=== PATIENT | male | born 1940 | race African-American/Black ===

== ENCOUNTER 2017-06-13 10:44 | Inpatient (IN) | payer MEDICAID, MEDICARE ==
[2017-06-13] VITALS (7 sets, daily range): BP systolic 119–216; BP diastolic 68–101
[~2017-06-13] VITALS: Ht 185.4 cm; Wt 83.5 kg
[2017-06-13] MEDS ORDERED: ASPIRIN 81MG TABLET PO ONE (11:45)
[2017-06-13 12:10] LABS: BASOPHILS % 0.7 % (0.0-2.0); EOSINOPHILS % 1.6 % (0.0-5.0); HEMATOCRIT. 43.1 % (42.0-52.0); HEMOGLOBIN. 14.6 g/dL (14.0-18.0); LYMPHOCYTES % 23.2 % (20.0-50.0); MEAN CORPUSCULAR HEMOGLOBIN 31.5 pg (28.0-32.0); MEAN CORPUSCULAR VOLUME 93.1 fL (80.0-94.0); MONOCYTES % 8.1 % (2.0-8.0); NEUTROPHILS % 66.4 % (40.0-76.0); PLATELET 207 x1000/uL (130-400); RED BLOOD CELL COUNT 4.62 mill/uL (4.7-6.1); RED CELL DISTRIBUTION WIDTH 14.4 % (11.6-14.6)
[2017-06-13 12:25] LABS: CARBON DIOXIDE 27 mEq/L (21-32); CHLORIDE 100 mEq/L (98-107); D-DIMER 0.77 mg/L FEU (<0.50); PARTIAL THROMBOPLASTIN TIME 26.4 sec (23.4-31.0); PROTHROMBIN TIME 10.7 sec (9.4-11.6); TROPONIN I 0.03 ng/mL (0.00-0.04)
[2017-06-13 12:44] LABS: COLOR URINE YELLOW (YELLOW)
[2017-06-13 12:45] LABS: CLARITY URINE CLEAR (CLEAR); GLUCOSE URINE 3+ (NEGATIVE); KETONES URINE NEGATIVE (NEGATIVE); LEUKOCYTE ESTERASE URINE NEGATIVE (NEGATIVE); NITRITE URINE NEGATIVE (NEGATIVE); OCCULT BLOOD URINE NEGATIVE (NEGATIVE); PROTEIN URINE 2+ (NEGATIVE); SPECIFIC GRAVITY URINE 1.027 (1.005-1.030); UROBILINOGEN URINE 0.2 E.U./dL (0.2-1.0)
[2017-06-13] MEDS ORDERED: CLONIDINE 0.1MG TABLET PO PRN (15:15)
[2017-06-13] MEDS ORDERED: HYDRALAZINE 20MG/ML VIAL IV PRN (15:15)
[2017-06-13] MEDS: AMLODIPINE 5MG TABLET PO SCH ×2 (16:57→21:06)
[2017-06-13] MEDS: LOSARTAN POTASSIUM 25 MG TABLET PO SCH ×2 (17:06→21:06)
[2017-06-13] MEDS: NITROGLYCERIN OINT 1GM/INCH UDPKT TD SCH (17:11)
[2017-06-13] MEDS ORDERED: IOHEXOL-350 100 ML BOTTLE ONE (17:16)
[2017-06-13] MEDS ORDERED: HYDROCODONE/ACETAMINOPHEN 5/325MG TABLET PO PRN (17:45)
[2017-06-13] MEDS ORDERED: DEXTROSE 50% WATER 50ML SYRINGE IV PRN (17:45)
[2017-06-13] MEDS ORDERED: ONDANSETRON HCL 4MG/2ML VIAL IV PRN (17:45)
[2017-06-13] MEDS ORDERED: IPRATROPIUM/ALBUTEROL 0.5-3(2.5)MG/3ML NEB INH PRN (17:45)
[2017-06-13] MEDS: BLOOD SUGAR DIAGNOSTIC STRIP TEST SCH (20:53)
[2017-06-13] MEDS: HYDROCODONE/ACETAMINOPHEN 10/325MG TABLET PO PRN (21:06)
[2017-06-13] MEDS: ENOXAPARIN 40MG/0.4ML SYR SUBCUT SCH (21:09)
[2017-06-13] MEDS: INSULIN LISPRO 100 UNITS/ML SUBCUT SCH (21:11)
[2017-06-13] MEDS ORDERED: IBUPROFEN 600MG TABLET PO PRN (23:15)
[2017-06-14 00:02] VITALS: BP 116/58
[2017-06-14] MEDS: NITROGLYCERIN OINT 1GM/INCH UDPKT TD SCH ×2 (00:22→05:10)
[2017-06-14] MEDS: ZOLPIDEM TARTRATE 5MG TABLET PO PRN ×2 (00:22→21:10)
[2017-06-14] MEDS ORDERED: BIMA2.5D4 EACHEYE (02:31)
[2017-06-14] MEDS ORDERED: HYDR-3992 PO (02:32)
[2017-06-14] MEDS ORDERED: ASPI-1159 PO (02:33)
[2017-06-14] MEDS ORDERED: ALBU6.7H INH (02:33)
[2017-06-14] MEDS ORDERED: LIP40 PO (02:34)
[2017-06-14] MEDS ORDERED: insulin (02:34)
[2017-06-14] MEDS ORDERED: HYDR25TA PO (02:34)
[2017-06-14] MEDS ORDERED: NITR0.4T49 SL (02:35)
[2017-06-14] MEDS ORDERED: LISI10TA5 PO (02:35)
[2017-06-14] MEDS ORDERED: METO50TA5 PO (02:36)
[2017-06-14] MEDS ORDERED: PROT40 PO (02:36)
[2017-06-14] MEDS ORDERED: TAMS-11 PO (02:37)
[2017-06-14] MEDS ORDERED: SITA100T11 PO (02:37)
[2017-06-14] MEDS ORDERED: INSU100I28 SQ (02:38)
[2017-06-14] MEDS ORDERED: ALPR2TAB2 PO (02:39)
[2017-06-14] MEDS ORDERED: HYDR-519 PO (02:40)
[2017-06-14 04:59] VITALS: BP 99/54
[2017-06-14] MEDS: BLOOD SUGAR DIAGNOSTIC STRIP TEST SCH ×4 (06:17→19:43)
[2017-06-14] MEDS: INSULIN LISPRO 100 UNITS/ML SUBCUT SCH ×4 (06:23→21:30)
[2017-06-14 06:50] LABS: *AMPHETAMINES SCREEN URINE NEGATIVE (NEGATIVE); *BARBITURATES SCREEN URINE NEGATIVE (NEGATIVE); *BENZODIAZEPINES SCREEN URINE NEGATIVE (NEGATIVE); *COCAINE SCREEN URINE NEGATIVE (NEGATIVE); CANNABINOID URINE SCREEN NEGATIVE (NEGATIVE); OPIATES URINE SCREEN NEGATIVE (NEGATIVE); PHENCYCLIDINE URINE SCREEN NEGATIVE (NEGATIVE)
[2017-06-14 06:58] LABS: METHADONE URINE SCREEN NEGATIVE (NEGATIVE)
[2017-06-14 07:34] LABS: BASOPHILS % 0.5 % (0.0-2.0); EOSINOPHILS % 0.8 % (0.0-5.0); HEMATOCRIT. 42.1 % (42.0-52.0); HEMOGLOBIN. 14.2 g/dL (14.0-18.0); LYMPHOCYTES % 20.1 % (20.0-50.0); MEAN CORPUSCULAR HEMOGLOBIN 31.4 pg (28.0-32.0); MEAN CORPUSCULAR VOLUME 93.3 fL (80.0-94.0); MEAN PLATELET VOLUME 8.4 fl (7.4-10.4); MONOCYTES % 6.3 % (2.0-8.0); NEUTROPHILS % 72.3 % (40.0-76.0); PLATELET 205 x1000/uL (130-400); RED BLOOD CELL COUNT 4.51 mill/uL (4.7-6.1); RED CELL DISTRIBUTION WIDTH 14.6 % (11.6-14.6)
[2017-06-14 08:00] VITALS: BP 123/60
[2017-06-14 08:07] LABS: CHLORIDE 101 mEq/L (98-107)
[2017-06-14 08:24] LABS: CARBON DIOXIDE 29 mEq/L (21-32); CREATINE KINASE 133 IU/L (39-308); CREATINE KINASE MB FRACTION 2.8 ng/mL (0.5-3.6); HDL CHOLESTEROL 41 mg/dL (40-59); LDL CHOLESTEROL 114 mg/dL (5-100); TROPONIN I 0.02 ng/mL (0.00-0.04)
[2017-06-14] MEDS: AMLODIPINE 5MG TABLET PO SCH (08:26)
[2017-06-14] MEDS: ASPIRIN 81MG TABLET PO SCH (08:26)
[2017-06-14] MEDS: LOSARTAN POTASSIUM 25 MG TABLET PO SCH ×2 (08:26→20:58)
[2017-06-14] MEDS ORDERED: DOBUTAMINE 250MG PREMIX 250 ML IV ONE ×2 (11:15→12:43)
[2017-06-14 12:00] VITALS: BP 117/63
[2017-06-14] MEDS ORDERED: ESMOLOL HCL 10MG/ML 10ML VIAL IV ONE (13:21)
[2017-06-14 16:00] VITALS: BP 123/71
[2017-06-14] MEDS: ENOXAPARIN 40MG/0.4ML SYR SUBCUT SCH (17:30)
[2017-06-14] MEDS: HYDROCODONE/ACETAMINOPHEN 10/325MG TABLET PO PRN ×2 (17:31→21:27)
[2017-06-14 20:00] VITALS: BP 114/72
[2017-06-14] MEDS: AMLODIPINE 2.5MG TABLET PO SCH (20:58)
[2017-06-15] VITALS: BP 144/67
[2017-06-15 03:23] VITALS: BP 116/74
[2017-06-15] MEDS: HYDROCODONE/ACETAMINOPHEN 10/325MG TABLET PO PRN ×2 (03:23→10:04)
[2017-06-15] MEDS: BLOOD SUGAR DIAGNOSTIC STRIP TEST SCH ×3 (05:49→12:17)
[2017-06-15] MEDS: INSULIN LISPRO 100 UNITS/ML SUBCUT SCH ×2 (05:56→12:38)
[2017-06-15 07:13] LABS: BASOPHILS % 0.6 % (0.0-2.0); EOSINOPHILS % 1.9 % (0.0-5.0); HEMOGLOBIN. 13.3 g/dL (14.0-18.0); LYMPHOCYTES % 38.5 % (20.0-50.0); MEAN CORPUSCULAR HEMOGLOBIN 31.1 pg (28.0-32.0); MEAN CORPUSCULAR VOLUME 93.4 fL (80.0-94.0); MEAN PLATELET VOLUME 8.5 fl (7.4-10.4); MONOCYTES % 9.4 % (2.0-8.0); NEUTROPHILS % 49.6 % (40.0-76.0); PLATELET 195 x1000/uL (130-400); RED BLOOD CELL COUNT 4.28 mill/uL (4.7-6.1); RED CELL DISTRIBUTION WIDTH 14.4 % (11.6-14.6)
[2017-06-15 07:27] VITALS: BP 105/64
[2017-06-15] MEDS: AMLODIPINE 2.5MG TABLET PO SCH (08:08)
[2017-06-15] MEDS: ASPIRIN 81MG TABLET PO SCH (08:20)
[2017-06-15] MEDS: LOSARTAN POTASSIUM 25 MG TABLET PO SCH (08:20)
[2017-06-15 08:39] LABS: CARBON DIOXIDE 26 mEq/L (21-32); CHLORIDE 102 mEq/L (98-107)
[2017-06-15 08:45] LABS: TROPONIN I 0.05 ng/mL (0.00-0.04)
[2017-06-15] MEDS ORDERED: AMLO2.5T45 PO (09:51)
[2017-06-15] MEDS ORDERED: LOSA25TA3 PO (09:51)
[2017-06-15] MEDS ORDERED: HYDR-519 PO (09:51)
[2017-06-15] MEDS ORDERED: ASPI-1160 PO (09:51)
[2017-06-15 11:44] VITALS: BP 126/76
[2017-06-15 15:03] VITALS: BP 126/76
[2017-06-15 15:54] VITALS: BP 140/61
== END 2017-06-15 15:50 | disposition home or self-care (01) | DRG 291 ==
LOC: ER 12:06 → 8WST 13:19 → EDBEDREQ 13:20 → ENRESERV 13:44
PROVIDERS: ADMIT Internal Medicine; ATTEND Internal Medicine
DX: I13.0 Hypertensive heart and chronic kidney disease with heart failure and stage 1 through stage 4 chronic kidney disease, or unspecified chronic kidney disease (principal); I50.43 Acute on chronic combined systolic (congestive) and diastolic (congestive) heart failure; N17.9 Acute kidney failure, unspecified; E11.22 Type 2 diabetes mellitus with diabetic chronic kidney disease; E11.65 Type 2 diabetes mellitus with hyperglycemia; M54.2 Cervicalgia; I25.10 Atherosclerotic heart disease of native coronary artery without angina pectoris; G89.29 Other chronic pain; M54.9 Dorsalgia, unspecified; J44.9 Chronic obstructive pulmonary disease, unspecified; E78.00 Pure hypercholesterolemia, unspecified; N18.9 Chronic kidney disease, unspecified; R79.1 Abnormal coagulation profile; Z95.1 Presence of aortocoronary bypass graft; Z79.1 Long term (current) use of non-steroidal anti-inflammatories (NSAID); I25.2 Old myocardial infarction; Z79.4 Long term (current) use of insulin; Z79.899 Other long term (current) drug therapy; Z79.82 Long term (current) use of aspirin
CPT/HCPCS: 36415; 71010; 71275; 80053; 80061; 80305; 81001; 82550; 82553; 82962; 83036; 83690; 83735; 83880; 84443; 84484; 85025; 85379; 85610; 85730; 87040; 87086; 93005; 93306; 93970; 97162; 97166; 97535; 99285; J0360; J1250; J1650; J1815; J3490; Q9967

== ENCOUNTER 2020-02-15 16:21 | Inpatient (IN) | payer MEDICARE, MEDICAID ==
[~2020-02-15] VITALS: Ht 185.4 cm; Wt 88.5 kg
[~2020-02-15 16:21] MED LIST: ALBU6.7H11 INH; ALPR2TAB2 PO; AMLO2.5T45 PO; ASPI-1160 PO; ASPI-1497 PO; BIMA2.5D4 EACHEYE; HYDR-3992 PO; HYDR-519 PO; INSU100I28 SQ; LIP40 PO; LOSA25TA3 PO; NITR0.4T49 SL; SITA100T11 PO; TAMS-11 PO; insulin
[2020-02-15] MEDS ORDERED: ASPIRIN 81MG TABLET PO ONE (18:00)
[2020-02-15] MEDS ORDERED: NITROGLYCERIN 0.4MG TABLET SL SL PRN (18:00)
[2020-02-15 18:25] LABS: BASOPHILS % 0.4 % (0.0-2.0); EOSINOPHILS % 1.6 % (0.0-5.0); HEMATOCRIT. 41.3 % (42.0-52.0); HEMOGLOBIN. 13.8 g/dL (14.0-18.0); MEAN CORPUSCULAR HEMOGLOBIN 31.5 pg (28.0-32.0); MEAN CORPUSCULAR VOLUME 94.2 fL (80.0-94.0); MEAN PLATELET VOLUME 7.5 fl (7.4-10.4); MONOCYTES % 11.8 % (2.0-8.0); NEUTROPHILS % 59.2 % (40.0-76.0); PLATELET 253 x1000/uL (130-400); RED BLOOD CELL COUNT 4.38 mill/uL (4.7-6.1); RED CELL DISTRIBUTION WIDTH 14.4 % (11.6-14.6)
[2020-02-15 18:27] LABS: CHLORIDE 112 mEq/L (98-107)
[2020-02-15 19:25] LABS: CLARITY URINE CLEAR (CLEAR); COLOR URINE YELLOW (YELLOW); KETONES URINE NEGATIVE (NEGATIVE); LEUKOCYTE ESTERASE URINE NEGATIVE (NEGATIVE); NITRITE URINE NEGATIVE (NEGATIVE); OCCULT BLOOD URINE NEGATIVE (NEGATIVE); PROTEIN URINE 2+ (NEGATIVE); UROBILINOGEN URINE 0.2 E.U./dL (0.2-1.0)
[2020-02-15] MEDS ORDERED: ONDANSETRON HCL 4MG/2ML INJ IV PRN (22:00)
[2020-02-15] MEDS ORDERED: ACETAMINOPHEN 325MG TABLET PO PRN (22:00)
[2020-02-15] MEDS ORDERED: METOPROLOL TARTRATE 50MG TABLET PO NR (22:00)
[2020-02-15] MEDS ORDERED: DEXTROSE 50% WATER 50ML SYRINGE IV PRN (22:00)
[2020-02-15] MEDS: SODIUM CHLORIDE 0.9% 1,000 ML IV SCH (22:49)
[2020-02-15 22:58] VITALS: BP 192/83
[2020-02-16] VITALS: BP 115/79
[2020-02-16] MEDS ORDERED: ALLO100T PO (00:26)
[2020-02-16] MEDS ORDERED: NALO4SPR NS (00:26)
[2020-02-16] MEDS ORDERED: DULO20CA18 PO (00:26)
[2020-02-16] MEDS ORDERED: CYCL5TAB PO (00:26)
[2020-02-16] MEDS ORDERED: LEVVL SQ (00:26)
[2020-02-16] MEDS ORDERED: SULF-288 PO (00:26)
[2020-02-16] MEDS ORDERED: INSU100I33 SQ (00:26)
[2020-02-16] MEDS ORDERED: MONT10TA26 PO (00:26)
[2020-02-16] MEDS ORDERED: FLUT1DIS6 IH (00:29)
[2020-02-16] MEDS ORDERED: QUET100T33 PO (00:29)
[2020-02-16] MEDS ORDERED: PRED5DRO22 LEFTEYE (00:29)
[2020-02-16] MEDS ORDERED: OMEP20TA2 PO (00:29)
[2020-02-16] MEDS ORDERED: KETO5DRO80 RIGHTEYE (00:29)
[2020-02-16 04:00] VITALS: BP 136/69
[2020-02-16] MEDS: INSULIN LISPRO 100 UNITS/ML SUBCUT SCH ×4 (06:25→21:51)
[2020-02-16] MEDS: BLOOD SUGAR DIAGNOSTIC STRIP TEST SCH ×4 (06:25→21:50)
[2020-02-16] MEDS ORDERED: INSULIN LISPRO 100 UNITS/ML SUBCUT SCH (07:15)
[2020-02-16 08:00] VITALS: BP 182/80
[2020-02-16] MEDS: ASPIRIN 81MG TABLET PO SCH (08:38)
[2020-02-16] MEDS: METOPROLOL TARTRATE 50MG TABLET PO SCH ×2 (08:38→21:00)
[2020-02-16] MEDS: AMLODIPINE 10MG TABLET PO SCH (09:46)
[2020-02-16 11:09] LABS: BASOPHILS % 0.5 % (0.0-2.0); EOSINOPHILS % 2.4 % (0.0-5.0); HEMATOCRIT. 37.9 % (42.0-52.0); HEMOGLOBIN. 12.6 g/dL (14.0-18.0); LYMPHOCYTES % 32.9 % (20.0-50.0); MEAN CORPUSCULAR HEMOGLOBIN 31.5 pg (28.0-32.0); MEAN CORPUSCULAR VOLUME 94.9 fL (80.0-94.0); MEAN PLATELET VOLUME 7.6 fl (7.4-10.4); MONOCYTES % 9.3 % (2.0-8.0); NEUTROPHILS % 54.9 % (40.0-76.0); PLATELET 213 x1000/uL (130-400); RED BLOOD CELL COUNT 3.99 mill/uL (4.7-6.1); RED CELL DISTRIBUTION WIDTH 14.6 % (11.6-14.6)
[2020-02-16] MEDS: ENOXAPARIN 30MG/0.3ML SYR SUBCUT SCH (12:40)
[2020-02-16 14:58] VITALS: BP 121/61
[2020-02-16] MEDS: CLONIDINE 0.2MG TABLET PO SCH ×2 (15:05→21:49)
[2020-02-16 16:00] VITALS: BP 134/70
[2020-02-16 20:00] VITALS: BP 135/62
[2020-02-16] MEDS: ATORVASTATIN CALCIUM 20MG TABLET PO SCH (21:49)
[2020-02-16] MEDS: SODIUM CHLORIDE 0.9% 1,000 ML IV SCH (22:03)
[2020-02-16] MEDS: PREDNISOLONE ACETATE 1% OPHTH DROPS 5ML BOTHEYE SCH (22:33)
[2020-02-16] MEDS: KETOROLAC TROMETHAMINE 0.5% OPHTH 3ML BOTHEYE SCH (22:33)
[2020-02-17] VITALS: BP 116/47
[2020-02-17 04:00] VITALS: BP 118/53
[2020-02-17] MEDS: INSULIN LISPRO 100 UNITS/ML SUBCUT SCH ×4 (06:16→20:59)
[2020-02-17] MEDS: BLOOD SUGAR DIAGNOSTIC STRIP TEST SCH ×4 (06:16→20:52)
[2020-02-17] MEDS: CLONIDINE 0.2MG TABLET PO SCH (06:33)
[2020-02-17 08:00] VITALS: BP 150/63
[2020-02-17] MEDS: ASPIRIN 81MG TABLET PO SCH (08:35)
[2020-02-17] MEDS: KETOROLAC TROMETHAMINE 0.5% OPHTH 3ML BOTHEYE SCH ×4 (08:36→20:52)
[2020-02-17] MEDS: ENOXAPARIN 30MG/0.3ML SYR SUBCUT SCH (08:36)
[2020-02-17] MEDS: AMLODIPINE 10MG TABLET PO SCH (08:36)
[2020-02-17] MEDS: PREDNISOLONE ACETATE 1% OPHTH DROPS 5ML BOTHEYE SCH ×4 (08:41→20:52)
[2020-02-17] MEDS: METOPROLOL TARTRATE 50MG TABLET PO SCH (08:42)
[2020-02-17 12:00] VITALS: BP 144/53
[2020-02-17] MEDS: SODIUM CHLORIDE 0.9% 1,000 ML IV SCH (13:45)
[2020-02-17 16:00] VITALS: BP 139/60
[2020-02-17] MEDS: HYDRALAZINE HCL 100MG TABLET PO SCH ×2 (16:22→20:52)
[2020-02-17 20:41] VITALS: BP 123/57
[2020-02-17] MEDS: ATORVASTATIN CALCIUM 20MG TABLET PO SCH (20:51)
[2020-02-17] MEDS: QUETIAPINE FUMARATE 50MG TABLET PO SCH (21:31)
[2020-02-18] VITALS: BP 106/35
[2020-02-18 04:00] VITALS: BP 146/51
[2020-02-18] MEDS: INSULIN LISPRO 100 UNITS/ML SUBCUT SCH ×4 (07:02→20:41)
[2020-02-18] MEDS: HYDRALAZINE HCL 100MG TABLET PO SCH ×3 (07:02→20:40)
[2020-02-18] MEDS: BLOOD SUGAR DIAGNOSTIC STRIP TEST SCH ×4 (07:02→20:40)
[2020-02-18] MEDS ORDERED: AMLO10TA80 PO (07:17)
[2020-02-18] MEDS ORDERED: HYDR100T26 PO (07:17)
[2020-02-18] MEDS ORDERED: ATOR20TA PO (07:17)
[2020-02-18 08:00] VITALS: BP 141/53
[2020-02-18] MEDS: KETOROLAC TROMETHAMINE 0.5% OPHTH 3ML BOTHEYE SCH ×4 (08:57→20:57)
[2020-02-18] MEDS: PREDNISOLONE ACETATE 1% OPHTH DROPS 5ML BOTHEYE SCH ×4 (08:57→20:57)
[2020-02-18] MEDS: ASPIRIN 81MG TABLET PO SCH (08:57)
[2020-02-18] MEDS: ENOXAPARIN 30MG/0.3ML SYR SUBCUT SCH (08:58)
[2020-02-18] MEDS: AMLODIPINE 10MG TABLET PO SCH (08:58)
[2020-02-18] MEDS: SODIUM CHLORIDE 0.9% 1,000 ML IV SCH (10:16)
[2020-02-18 12:00] VITALS: BP 116/68
[2020-02-18] MEDS ORDERED: LACTULOSE 20G/30ML UDC PO SCH (15:30)
[2020-02-18 16:00] VITALS: BP 154/71
[2020-02-18 20:00] VITALS: BP 174/66
[2020-02-18] MEDS: QUETIAPINE FUMARATE 50MG TABLET PO SCH (20:40)
[2020-02-18] MEDS: ATORVASTATIN CALCIUM 20MG TABLET PO SCH (20:41)
[2020-02-19] VITALS: BP 143/71
[2020-02-19 04:00] VITALS: BP 120/47
[2020-02-19] MEDS: SODIUM CHLORIDE 0.9% 1,000 ML IV SCH (06:00)
[2020-02-19] MEDS: HYDRALAZINE HCL 100MG TABLET PO SCH ×3 (06:22→21:05)
[2020-02-19] MEDS: BLOOD SUGAR DIAGNOSTIC STRIP TEST SCH ×4 (06:32→20:45)
[2020-02-19] MEDS: INSULIN LISPRO 100 UNITS/ML SUBCUT SCH ×4 (06:35→21:09)
[2020-02-19 08:00] VITALS: BP 125/64
[2020-02-19] MEDS: ENOXAPARIN 30MG/0.3ML SYR SUBCUT SCH (09:00)
[2020-02-19] MEDS: ASPIRIN 81MG TABLET PO SCH (09:29)
[2020-02-19] MEDS: AMLODIPINE 10MG TABLET PO SCH (09:29)
[2020-02-19] MEDS: PREDNISOLONE ACETATE 1% OPHTH DROPS 5ML BOTHEYE SCH ×4 (09:30→21:07)
[2020-02-19] MEDS: KETOROLAC TROMETHAMINE 0.5% OPHTH 3ML BOTHEYE SCH ×4 (09:30→21:07)
[2020-02-19 12:00] VITALS: BP 121/73
[2020-02-19 16:00] VITALS: BP 146/73
[2020-02-19 20:00] VITALS: BP 156/77
[2020-02-19] MEDS: QUETIAPINE FUMARATE 50MG TABLET PO SCH (21:06)
[2020-02-19] MEDS: ATORVASTATIN CALCIUM 20MG TABLET PO SCH (21:06)
[2020-02-20] VITALS: BP 120/60
[2020-02-20] MEDS: SODIUM CHLORIDE 0.9% 1,000 ML IV SCH (02:00)
[2020-02-20 04:00] VITALS: BP 117/64
[2020-02-20] MEDS: HYDRALAZINE HCL 100MG TABLET PO SCH (05:48)
[2020-02-20] MEDS: BLOOD SUGAR DIAGNOSTIC STRIP TEST SCH (05:48)
[2020-02-20] MEDS: INSULIN LISPRO 100 UNITS/ML SUBCUT SCH (06:37)
[2020-02-20 08:00] VITALS: BP 136/68
[2020-02-20 09:47] VITALS: BP 136/58
[2020-02-20] MEDS: ASPIRIN 81MG TABLET PO SCH (10:01)
[2020-02-20] MEDS: AMLODIPINE 10MG TABLET PO SCH (10:01)
[2020-02-20] MEDS: ENOXAPARIN 30MG/0.3ML SYR SUBCUT SCH (10:02)
[2020-02-20] MEDS: KETOROLAC TROMETHAMINE 0.5% OPHTH 3ML BOTHEYE SCH (10:02)
[2020-02-20] MEDS: PREDNISOLONE ACETATE 1% OPHTH DROPS 5ML BOTHEYE SCH (10:02)
== END 2020-02-20 11:55 | disposition home or self-care (01) | DRG 880 ==
LOC: ER 16:21 → EDBEDREQTM 18:56 → EDBEDREQ 18:56 → 5WST 20:55 → EDBEDREQ 20:58 → EDBEDREQTM 20:58 → ENRESERV 21:24
PROVIDERS: ADMIT Internal Medicine; ATTEND Internal Medicine
DX: F41.9 Anxiety disorder, unspecified (principal); N17.0 Acute kidney failure with tubular necrosis; D64.9 Anemia, unspecified; E11.9 Type 2 diabetes mellitus without complications; E78.5 Hyperlipidemia, unspecified; I25.10 Atherosclerotic heart disease of native coronary artery without angina pectoris; R00.1 Bradycardia, unspecified; E87.8 Other disorders of electrolyte and fluid balance, not elsewhere classified; I10 Essential (primary) hypertension; J44.9 Chronic obstructive pulmonary disease, unspecified; Z59.0 Homelessness; Z95.1 Presence of aortocoronary bypass graft; Z79.82 Long term (current) use of aspirin; Z79.899 Other long term (current) drug therapy; Y08.89XA Assault by other specified means, initial encounter; Y93.89 Activity, other specified; Y92.512 Supermarket, store or market as the place of occurrence of the external cause; Y99.8 Other external cause status
CPT/HCPCS: 36415; 71045; 80048; 80053; 81003; 82962; 83880; 84484; 85025; 93005; 93306; 99285; J1650; J1815